=== PATIENT | male | born 1930 | race Caucasian/White ===

== ENCOUNTER → 2016-10-24 | Outpatient (CLI) | payer MEDICARE, BC ==
[2014-03-16 14:34] VITALS: BP 143/80
[~2016-10-24] MED LIST: AMARYL1 MG PO; AMLODIPINE5 MG PO; ASPIRIN 32325 MG/TAB PO; CARDI-OMEGA1000 MG PO; CEPHALEXIN500 M1 PO; COUMADIN2.5 MG PO; COUMADIN5 MG PO; GARLIC1000 MG PO; LOTRISONE CREAM15 GM TP; METOPROLOL SUCC50 MG PO; NITROGLYCERIN0.4 MG SL; PLAVIX 75MG TAB75 MG PO; PRILOSEC 20MG20 MG PO; PROTONIX40 MG PO; RANEXA1000 MG PO; SAW PALMETTO450 MG PO; XALATAN EYE DROPS OU
== END ==
LOC: VAS 16:14
DX: R53.83 Other fatigue (principal); R06.00 Dyspnea, unspecified

== ENCOUNTER 2017-02-04 14:28 | Outpatient (RCR) | payer MEDICARE, BC ==
[2014-03-16 14:34] VITALS: BP 143/80
== END 2017-05-05 | disposition home or self-care (01) ==
LOC: CARDREHAB
DX: Z48.812 Encounter for surgical aftercare following surgery on the circulatory system (principal); Z95.5 Presence of coronary angioplasty implant and graft

== ENCOUNTER → 2017-04-29 | Outpatient (CLI) | payer MEDICARE, BC ==
[2014-03-16 14:34] VITALS: BP 143/80
== END ==
LOC: RAD 09:59
DX: I65.23 Occlusion and stenosis of bilateral carotid arteries (principal); R47.9 Unspecified speech disturbances; I25.119 Atherosclerotic heart disease of native coronary artery with unspecified angina pectoris

== ENCOUNTER 2017-05-06 10:00 | Outpatient (RCR) | payer MEDICARE, BC ==
[2014-03-16 14:34] VITALS: BP 143/80
== END 2017-08-04 | disposition home or self-care (01) ==
LOC: CARDREHAB
DX: Z48.812 Encounter for surgical aftercare following surgery on the circulatory system (principal); Z95.5 Presence of coronary angioplasty implant and graft

== ENCOUNTER 2019-02-13 20:04 | Emergency (ER) | payer MEDICARE, BC ==
[2019-02-13] MEDS ORDERED: ZYLOPRIM 100MG100 MG PO (20:26)
[2019-02-13] MEDS ORDERED: CETIRIZINE HYDRO5 MG PO (20:26)
[2019-02-13] MEDS ORDERED: EZETIMIBE10 M1 PO (20:27)
[2019-02-13] MEDS ORDERED: EMOLLIENT TOP (20:27)
[2019-02-13] MEDS ORDERED: FUROSEMIDE20 MG PO (20:28)
[2019-02-13] MEDS ORDERED: ISOSORBIDE30 MG PO (20:28)
[2019-02-13] MEDS ORDERED: ZESTRIL5 M1 PO (20:28)
[2019-02-13] MEDS ORDERED: GLIMEPIRIDE2 M1 PO (20:28)
[2019-02-13] MEDS ORDERED: RANITIDINE HCL150 M1 PO (20:29)
[2019-02-13] MEDS ORDERED: PROBIOTIC1 EACH PO (20:29)
[2019-02-13] MEDS ORDERED: SINGULAIR 110 MG/TAB PO (20:29)
[2019-02-13] MEDS ORDERED: SERTRALINE50 MG PO (20:30)
[2019-02-13] MEDS ORDERED: METAMUCIL3.4 GM/Dos PO (20:31)
[2019-02-13 21:03] LABS: EOS # 0.2 (0.04-0.40); EOS % 3.5 % (0.0-4.0); HEMATOCRIT 34.6 % (42.0-52.0); HEMOGLOBIN 11.3 g/dL (13.5-18.0); LYMPH# 1.2 (1.50-4.00); MEAN CELL VOLUME 95 fl (78-100); MEAN CORPUSCULAR HEMOGLOBIN 31 pg (27-31); MEAN CORPUSCULAR HGB CONC 33 g/dL (33-37); MEAN PLATELET VOLUME 9.3 fl (7.4-10.4); MONO # 0.8 (0.20-0.80); NEU # 4.7 (1.40-6.50); PLATELET COUNT 165 K/mm3 (130-400); RED BLOOD COUNT 3.66 M/mm3 (4.20-5.60); RED CELL DISTRIBUTION WIDTH 14.3 % (11.5-14.5); WHITE BLOOD COUNT 6.9 K/mm3 (4.8-10.8)
[2019-02-13 21:12] LABS: ALBUMIN 3.8 g/dL (3.4-4.8); POTASSIUM 4.1 mmol/L (3.5-5.1)
[2019-02-13 21:15] LABS: TOTAL PROTEIN 7.2 g/dL (6.2-8.1)
[2019-02-13 21:17] LABS: TOTAL BILIRUBIN 0.6 mg/dL (0.2-1.2)
[2019-02-13] MEDS ORDERED: NORCO 325 MG-51 TA1 PO (21:57)
[2019-02-13 22:14] VITALS: BP 115/60
== END 2019-02-13 22:14 | disposition home or self-care (01) ==
LOC: ED 20:04
PROVIDERS: Nurse Practitioner
DX: M70.21 Olecranon bursitis, right elbow (principal); E11.9 Type 2 diabetes mellitus without complications; I25.10 Atherosclerotic heart disease of native coronary artery without angina pectoris; I25.2 Old myocardial infarction; I10 Essential (primary) hypertension; K21.9 Gastro-esophageal reflux disease without esophagitis; F31.9 Bipolar disorder, unspecified; G47.30 Sleep apnea, unspecified; Z79.84 Long term (current) use of oral hypoglycemic drugs; Z86.73 Personal history of transient ischemic attack (TIA), and cerebral infarction without residual deficits; Z95.0 Presence of cardiac pacemaker; Z87.442 Personal history of urinary calculi; Z90.79 Acquired absence of other genital organ(s); Z90.49 Acquired absence of other specified parts of digestive tract; Z98.52 Vasectomy status; Z90.89 Acquired absence of other organs; Z95.5 Presence of coronary angioplasty implant and graft; Z79.01 Long term (current) use of anticoagulants; Z79.02 Long term (current) use of antithrombotics/antiplatelets
CPT/HCPCS: J2405; J3010